=== PATIENT | female | born 1970 | race Caucasian/White ===

== ENCOUNTER 2018-05-02 12:49 | Day surgery (SDC) | payer OTHER ==
[~2018-05-02] VITALS: Ht 160 cm; Wt 90.7 kg
[~2018-05-02 12:49] MED LIST: ADVAIR 250/501 DISK IH; ADVIL200 MG PO
[2018-05-02 13:10] VITALS: BP 161/94
[2018-05-02] MEDS ORDERED: VENTOLIN HFA18 GM IH (13:16)
[2018-05-02] MEDS ORDERED: NORCO 5/3251 TABLET PO (16:09)
[2018-05-02 16:40] VITALS: BP 149/78
[2018-05-02 17:34] VITALS: BP 140/82
== END 2018-05-02 17:40 | disposition home or self-care (01) ==
LOC: SDC 12:49
PROC: 07B20ZX Excision of Left Neck Lymphatic, Open Approach, Diagnostic (ICD-10-PCS; principal; 2018-05-02)
DX: C77.0 Secondary and unspecified malignant neoplasm of lymph nodes of head, face and neck (principal); Z85.3 Personal history of malignant neoplasm of breast; I10 Essential (primary) hypertension; J45.909 Unspecified asthma, uncomplicated; I83.009 Varicose veins of unspecified lower extremity with ulcer of unspecified site; E66.9 Obesity, unspecified; Z68.35 Body mass index [BMI] 35.0-35.9, adult
CPT/HCPCS: 88305; 88341 TC; 88342 TC; J0690; J2250; Q0175; S0020